=== PATIENT | female | born 1980 | race Caucasian/White ===

== ENCOUNTER 2017-06-08 05:13 | Inpatient (IN) | payer MEDICAID ==
[~2017-06-08] VITALS: Ht 157.5 cm; Wt 93.9 kg
[2017-06-08] MEDS ORDERED: DEXT 5%/LR + PITOCIN 20UNITS/L 1,000 ML IV SCH (06:00)
[2017-06-08] MEDS ORDERED: NALOXONE HCL 0.4 MG/ML 1ML VIAL IM PRN (06:00)
[2017-06-08] MEDS ORDERED: METHYLERGONOVINE MALEATE 0.2 MG/ML IM PRN (06:00)
[2017-06-08] MEDS ORDERED: PENICILLIN G POTASSIUM 5 MMU in DEXT 5% WATER 100 ML IV SCH (06:00)
[2017-06-08] MEDS ORDERED: LACTATED RINGERS 1,000 ML IV SCH (06:00)
[2017-06-08 06:57] LABS: CLARITY URINE CLOUDY (CLEAR); COLOR URINE YELLOW (YELLOW); GLUCOSE URINE NEGATIVE (NEGATIVE); KETONES URINE NEGATIVE (NEGATIVE); LEUKOCYTE ESTERASE URINE 3+ (NEGATIVE); NITRITE URINE NEGATIVE (NEGATIVE); OCCULT BLOOD URINE 1+ (NEGATIVE); PROTEIN URINE TRACE (NEGATIVE); SPECIFIC GRAVITY URINE 1.007 (1.005-1.030); UROBILINOGEN URINE 0.2 E.U./dL (0.2-1.0)
[2017-06-08 07:07] LABS: *AMPHETAMINES SCREEN URINE NEGATIVE (NEGATIVE); *BARBITURATES SCREEN URINE NEGATIVE (NEGATIVE); *BENZODIAZEPINES SCREEN URINE NEGATIVE (NEGATIVE); CANNABINOID URINE SCREEN NEGATIVE (NEGATIVE); METHADONE URINE SCREEN NEGATIVE (NEGATIVE); OPIATES URINE SCREEN NEGATIVE (NEGATIVE); PHENCYCLIDINE URINE SCREEN NEGATIVE (NEGATIVE)
[2017-06-08 07:09] LABS: PARTIAL THROMBOPLASTIN TIME 25.4 sec (23.4-31.0); PROTHROMBIN TIME 10.1 sec (9.4-11.6)
[2017-06-08 07:10] LABS: BASOPHILS % 0.1 % (0.0-2.0); EOSINOPHILS % 0.7 % (0.0-5.0); HEMATOCRIT. 37.5 % (36.0-48.0); HEMOGLOBIN. 12.5 g/dL (12.0-16.0); LYMPHOCYTES % 18.5 % (20.0-50.0); MEAN CORPUSCULAR HEMOGLOBIN 29.2 pg (28.0-32.0); MEAN CORPUSCULAR VOLUME 87.5 fL (81.0-99.0); MEAN PLATELET VOLUME 8.9 fl (7.4-10.4); MONOCYTES % 9.2 % (2.0-8.0); NEUTROPHILS % 71.5 % (40.0-76.0); PLATELET 267 x1000/uL (130-400); RED BLOOD CELL COUNT 4.29 mill/uL (4.2-5.4)
[2017-06-08] MEDS ORDERED: OXYTOCIN 10 UNITS/ML 1ML ONE (07:33)
[2017-06-08] MEDS ORDERED: SODIUM CHLORIDE 0.9% 10ML VIAL ONE (07:33)
[2017-06-08] MEDS ORDERED: EPHEDRINE SULFATE 50MG/ML VIAL ONE (07:33)
[2017-06-08] MEDS ORDERED: MORPHINE SULFATE/PF 1MG/ML 10ML AMP ONE (07:33)
[2017-06-08] MEDS ORDERED: PHENYLEPHRINE HCL 10 MG/ML 1ML (IV VIAL) IV ONE (07:33)
[2017-06-08] MEDS ORDERED: FENTANYL CITRATE/PF 50MCG/ML 2ML VIAL ONE (07:34)
[2017-06-08] MEDS ORDERED: ROCURONIUM BROMIDE 10MG/ML VIAL 5ML IV ONE (07:34)
[2017-06-08] MEDS ORDERED: TERBUTALINE SULFATE 1MG/ML VIAL SUBCUT SCH (07:45)
[2017-06-08] MEDS ORDERED: ONDANSETRON HCL 4MG/2ML VIAL ONE (07:54)
[2017-06-08] MEDS ORDERED: GLYCOPYRROLATE 0.2 MG/ML 2ML VIAL ONE (08:13)
[2017-06-08] MEDS ORDERED: CEFAZOLIN 2000MG PREMIX 50 ML IV ONE (08:21)
[2017-06-08] MEDS ORDERED: DIPHENHYDRAMINE 50MG/ML VIAL ONE (11:26)
[2017-06-08 11:35] LABS: *COCAINE SCREEN URINE NEGATIVE (NEGATIVE)
[2017-06-08] MEDS ORDERED: ONDANSETRON HCL 4MG/2ML VIAL IV PRN (12:00)
[2017-06-08] MEDS ORDERED: RHO(D) IMMUNE GLOBULIN 300 MCG/SYR IM PRN (12:00)
[2017-06-08] MEDS ORDERED: HYDROCODONE/ACETAMINOPHEN 5/325MG TABLET PO PRN (12:00)
[2017-06-08] MEDS ORDERED: IBUPROFEN 400MG TABLET PO PRN (12:00)
[2017-06-08] MEDS ORDERED: DIPHENHYDRAMINE 50MG/ML VIAL IV PRN (12:15)
[2017-06-08] MEDS ORDERED: KETOROLAC 30MG/ML VIAL IV PRN (12:15)
[2017-06-08] MEDS ORDERED: NALOXONE HCL 0.4 MG/ML 1ML VIAL IV PRN (12:15)
[2017-06-08 12:25] LABS: HEPATITIS B SURFACE ANTIGEN NEGATIVE; RUBELLA IGG 28.2 IU/mL (4.99-10)
[2017-06-08] MEDS: DEXT 5%/LR + PITOCIN 20UNITS/L 1,000 ML IV SCH (13:56)
[2017-06-08 14:45] VITALS: BP 100/56
[2017-06-08 15:30] VITALS: BP 97/47
[2017-06-08 17:06] VITALS: BP 90/57
[2017-06-08 19:15] VITALS: BP 92/58
[2017-06-09 00:01] VITALS: BP 90/56
[2017-06-09 04:05] VITALS: BP 94/52
[2017-06-09] MEDS: DEXT 5%/LR + PITOCIN 20UNITS/L 1,000 ML IV SCH (05:21)
[2017-06-09 05:48] LABS: BASOPHILS % 0.1 % (0.0-2.0); EOSINOPHILS % 0.1 % (0.0-5.0); HEMOGLOBIN. 10.7 g/dL (12.0-16.0); LYMPHOCYTES % 15.4 % (20.0-50.0); MEAN CORPUSCULAR HEMOGLOBIN 29.4 pg (28.0-32.0); MEAN CORPUSCULAR VOLUME 87.4 fL (81.0-99.0); MEAN PLATELET VOLUME 8.1 fl (7.4-10.4); MONOCYTES % 7.5 % (2.0-8.0); NEUTROPHILS % 76.9 % (40.0-76.0); PLATELET 234 x1000/uL (130-400); RED BLOOD CELL COUNT 3.66 mill/uL (4.2-5.4); RED CELL DISTRIBUTION WIDTH 14.3 % (11.6-14.6)
[2017-06-09] MEDS: HYDROCODONE/ACETAMINOPHEN 5/325MG TABLET PO PRN ×2 (05:48→20:20)
[2017-06-09] MEDS: PRENATAL VIT/FE FUMARATE/FA TABLET PO SCH (08:26)
[2017-06-09 08:39] VITALS: BP 114/68
[2017-06-09 16:22] VITALS: BP 103/58
[2017-06-09 20:20] VITALS: BP 117/66
[2017-06-09] MEDS: DOCUSATE SODIUM 100MG CAPSULE PO SCH (20:21)
[2017-06-10 00:15] VITALS: BP 97/49
[2017-06-10 04:31] VITALS: BP 96/50
[2017-06-10] MEDS: IBUPROFEN 800MG TABLET PO PRN ×2 (04:31→18:34)
[2017-06-10 07:32] VITALS: BP 99/56
[2017-06-10] MEDS: PRENATAL VIT/FE FUMARATE/FA TABLET PO SCH (07:59)
[2017-06-10 15:05] VITALS: BP 109/58
[2017-06-10 19:30] VITALS: BP 101/62
[2017-06-10] MEDS ORDERED: TETANUS, DIPHTHERIA, PERTUSSIS VAC/PF 0.5ML (>7YR OLD) IM ONE (21:00)
[2017-06-10] MEDS: DOCUSATE SODIUM 100MG CAPSULE PO SCH (22:37)
[2017-06-10 23:31] VITALS: BP 98/60
[2017-06-11 04:00] VITALS: BP 103/65
[2017-06-11 07:27] VITALS: BP 101/55
[2017-06-11] MEDS: PRENATAL VIT/FE FUMARATE/FA TABLET PO SCH (08:01)
[2017-06-11] MEDS: IBUPROFEN 800MG TABLET PO PRN (08:02)
== END 2017-06-11 11:00 | disposition home or self-care (01) | DRG 540 ==
LOC: OBSVTOIN 05:13 → L&D 05:13 → 7EST PP/OB 14:38
PROVIDERS: ADMIT Obstetrics & Gynecology; ATTEND Obstetrics & Gynecology
PROC: 10D00Z1 Extraction of Products of Conception, Low, Open Approach (ICD-10-PCS; principal; 2017-06-08 11:11)
DX: O34.211 Maternal care for low transverse scar from previous cesarean delivery (principal); D62 Acute posthemorrhagic anemia; O66.41 Failed attempted vaginal birth after previous cesarean delivery; O76 Abnormality in fetal heart rate and rhythm complicating labor and delivery; O99.02 Anemia complicating childbirth; Z37.0 Single live birth; Z3A.38 38 weeks gestation of pregnancy; O09.523 Supervision of elderly multigravida, third trimester
CPT/HCPCS: 36415; 80305; 81001; 85025; 85610; 85730; 86592; 86703; 86762; 86850; 86900; 86920; 87340; 88307; 90715; A4216; J0171; J0690; J1200; J2274; J2370; J2405; J2540; J2590; J3010; J3105; J3490; J7060; J7120; A4315